=== PATIENT | female | born 1975 | race Two or more races ===

== ENCOUNTER 2020-08-22 16:42 | Emergency (ER) | payer BC, SELFPAY ==
[~2020-08-22] VITALS: Ht 167.6 cm; Wt 145.0 kg
--- NOTE | 2020-08-22 16:54 | NUR ---
BIBA AFTER TAKING 10-15 SHOTS OF TEQULIA IN CELEBRATION OF HUSBANDS BIRTHDAY. PT NOW HAVING N/V. HX OF DM BS 215. TRISHA CRANDALL AT BEDSIDE FOR EVALUATION. SON AT BEDSIDE TO PROVIDE MEDICAL INFO. PT ATTACHED TO ALL MONITORS. VSS. MAYA.
[2020-08-22] MEDS ORDERED: THIAMINE 100 MG in SODIUM CHLORIDE 0.9% 50 ML IVPB ONE (17:00)
[2020-08-22] MEDS ORDERED: ONDANSETRON 2MG/ML, 2ML IVPush ONE (17:00)
[2020-08-22] MEDS ORDERED: SODIUM CHLORIDE FLUSH 10ML SYR IVF ONE (17:00)
[2020-08-22] MEDS ORDERED: SODIUM CHLORIDE 0.9% 1,000ML IVBOLUS ONE (17:00)
[2020-08-22] MEDS ORDERED: ONDANSETRON 2MG/ML, 2ML ONE (17:04)
[2020-08-22 17:16] LABS: BASOPHILS % (AUTO) 0 % (0-1); EOSINOPHILS % (AUTO) 1 % (1-7); LYMPHOCYTES % (AUTO) 29 % (22-44); MD NO; MEAN CORPUSCULAR HEMOGLOBIN 31.9 pg (27.0-34.8); MEAN CORPUSCULAR HGB CONC 34.4 g/dL (32.4-35.8); MEAN PLATELET VOLUME 7.4 fL (7.4-10.4); MONOCYTES % (AUTO) 3 % (2-9); NEUTROPHILS % (AUTO) 67 % (42-75); PLATELET COUNT 291 x10^3/uL (130-400); RED BLOOD COUNT 4.62 x10^6/uL (3.82-5.3); RED CELL DISTRIBUTION WIDTH 12.9 % (9.6-15.2)
[2020-08-22 17:27] LABS: ALBUMIN 3.7 g/dL (3.4-5.0); ANION GAP 11 mmol/L (5-15); CALCIUM 8.9 mg/dL (8.5-10.1); CHLORIDE 103 mmol/L (98-107)
[2020-08-22 17:30] LABS: ALANINE AMINOTRANSFERASE 38 U/L (12-78); ALKALINE PHOSPHATASE 112 U/L (45-117); BILIRUBIN,TOTAL 0.3 mg/dL (0.2-1.0); CREATININE 0.61 mg/dL (0.55-1.02); TOTAL PROTEIN 8.5 g/dL (6.4-8.2)
--- NOTE | 2020-08-22 17:50 | NUR ---
SISTER AT BEDSIDE. PT ASLEEP WITH EVEN AND UNLABORED RR. PACHECON.
--- NOTE | 2020-08-22 18:42 | NUR ---
pt up to [facility] with steady gait. vss. nadn.
--- NOTE | 2020-08-22 18:50 | NUR ---
report given to tom man.
--- NOTE | 2020-08-22 18:51 | NUR ---
ASSUMED CARE OF PATIENT BEDSIDE REPORT GIVEN FROM POONAM MATTHEWS. PT IS A&O X4. FAMILY AT BEDSIDE. CALL LIGHT IN PLACE. WILL CONTINUE TO MONITOR.
[2020-08-22 19:03] VITALS: BP 142/72
--- NOTE | 2020-08-22 19:03 | NUR ---
PT IS A&O X4. PT IS ABLE TO SAFELY AMBULATE AROUND ROOM AND DRESS SELF. FAMILY IN ROOM TO GIVE PATIENT A RIDE HOME. VS STABLE. PT DISCHARGED PER KARLEY GALVEZ.
== END 2020-08-22 19:20 | disposition home or self-care (01) ==
LOC: ED 18:42
DX: F10.120 Alcohol abuse with intoxication, uncomplicated (principal); E11.9 Type 2 diabetes mellitus without complications; R94.31 Abnormal electrocardiogram [ECG] [EKG]; Y90.0 Blood alcohol level of less than 20 mg/100 ml
CPT/HCPCS: 36415; 80053; 85025; 93005; 96374; 96375; 99284; J2405; J3411; J7030